=== PATIENT | male | born 1970 | race Caucasian/White ===

== ENCOUNTER 2017-03-22 17:16 | Emergency (ER) | payer SELFPAY ==
[~2017-03-22] VITALS: Ht 190.5 cm; Wt 95.3 kg
[2017-03-22 17:18] VITALS: BP 130/75
--- NOTE | 2017-03-22 20:29 | NUR ---
To bed 12.
[2017-03-22] MEDS ORDERED: NACL 0.9% 1,000 ML IV ONE (20:30)
--- NOTE | 2017-03-22 20:35 | NUR ---
46Y M BIBA FOR ETOH, PT STATES HE HAS BEEN BINGE DRINKING FOR UNKNOWN TIME. PT STATES HIS QIFE 01/25/16 AND SINCE THEN HE HAS BEEN DEPRESSED. PT DENIES ANY SUICIDAL IDEATION, NO HARM TO OTHERS OR HIMSELF. PT AAOX4. PT DENIES ANY CP OR SOB AT THE MOMENT. PT AMBULATED TO ER BED 12 WITH STEADY GAIT
[2017-03-22] MEDS ORDERED: ONDANSETRON 4 MG/2 ML VIAL IVP ONE (21:10)
[2017-03-22] MEDS ORDERED: LORazepam 2 MG/ML VIAL IVP ONE (21:10)
[2017-03-22 22:01] LABS: BASOPHILS # (AUTO) 0.6 K/uL (0.00-0.22); EOSINOPHILS # (AUTO) 0.3 K/uL (0-0.4); HEMATOCRIT 52.9 % (36-52); LYMPHOCYTES # (AUTO) 1.9 K/uL (2.0-11.5); MEAN CORPUSCULAR HEMOGLOBIN 33 pg (27-31); MEAN CORPUSCULAR HGB CONC 34 g/dL (33-37); MEAN CORPUSCULAR VOLUME 97 fL (80-94); NEUTROPHILS # (AUTO) 6.4 K/uL (1.8-7.7); PLATELET COUNT (AUTO) 257 K/uL (140-450); RED BLOOD CELL COUNT(AUTO) 5.49 MIL/uL (4.20-6.10); RED CELL DISTRIBUTION WIDTH 11.9 % (11.6-13.7); WHITE BLOOD COUNT (AUTO) 10.2 K/uL (4.8-10.8)
[2017-03-22 22:14] LABS: ANION GAP 13.1 (8-16); CARBON DIOXIDE 28.3 mmol/L (21-32); CREATININE 1.1 mg/dL (0.7-1.3); POTASSIUM 3.4 mmol/L (3.5-5.1)
[2017-03-22 22:19] LABS: ALBUMIN 3.5 g/dL (3.4-5.0); TOTAL BILIRUBIN 1.5 mg/dL (0.0-1.0)
--- NOTE | 2017-03-22 22:57 | NUR ---
IV removed, catheter intact and site benign. Applied folded 4x4 gauze and tape to stop bleeding.
[2017-03-22 23:17] VITALS: BP 122/76
--- NOTE | 2017-03-22 23:18 | NUR ---
Patient discharged with v/s stable. Written and verbal after care instructions given and explained. Patient verbalized understanding. Ambulatory with steady gait. All questions addressed prior to discharge. Advised to follow up with PMD.
== END 2017-03-22 23:18 | disposition home or self-care (01) ==
LOC: MED 17:16
DX: F10.129 Alcohol abuse with intoxication, unspecified (principal)
CPT/HCPCS: 36415; 80053; 85025; 96361; 96374; 96375; 99285; G0482; J2060; J2405; J7030